=== PATIENT | male | born 1985 | race Caucasian/White ===

== ENCOUNTER → 2017-09-01 13:54 | Outpatient (CLI) | payer OTHER, SELFPAY ==
--- NOTE | 2017-09-01 14:00 | RAD_ITS ---
STUDY: X-RAY - CERVICAL SPINE REASON FOR EXAM: Male, 31 years old. Cervical radiculopathy, right arm pain and numbness TECHNIQUE: 5 view(s) of the cervical spine were obtained. COMPARISON: None FINDINGS: Normal anterior atlantoaxial articulation. Normal odontoid process. There is straightening of the normal cervical lordosis. Normal vertebral bodies and endplates. There is multi-level degenerative disc disease with multilevel disc space narrowing. There is multi-level osseous foraminal stenosis. The soft tissue structures are unremarkable. RAD/Cerv Spine 4 or 5 Views IMPRESSION: No fracture. Mild degenerative changes. Straightening of normal cervical lordosis. Electronically Signed: Pepe Collins DO at 23:49 EDT , Service support ,
== END ==
PROVIDERS: Visit Provider Chiropractor
DX: M54.12 Radiculopathy, cervical region (principal)
CPT/HCPCS: 72050